=== PATIENT | male | born 1965 | race Caucasian/White ===

== ENCOUNTER 2018-01-19 08:10 | Day surgery (SDC) | payer OTHER ==
[2018-01-18 10:46] VITALS: BMI 26.3
[2018-01-19] MEDS ORDERED: PROPOFOL 20 ML ONE ×3 (08:51→09:05)
[2018-01-19] MEDS ORDERED: LIDOCAINE HCL/PF 2% SDV 5ML VIAL ONE (08:51)
[2018-01-19 09:35] VITALS: TEMP 98.2
[2018-01-19 09:48] VITALS: BP 108/62; PULSE 84
--- NOTE | 2018-01-21 14:07 | PATH ---
Surgical Pathology Report Patient Name: IVANA DUARTE [facility]. Rec. #: [id number] /Age/Gender: 1965 (Age: 52) / M Account: [id number] Location: [facility] Taken: 01/19/2018 Received: 01/19/2018 Reported: 01/21/2018 Physicians: Fredo Goodwin M.D. Specimen(s) Received A: BX DUODENUM B: BX ANTRUM Clinical History Weight loss Postoperative diagnosis: Duodenitis, gastritis, normal colon Final Diagnosis A. DUODENUM, BIOPSY: SMALL BOWEL MUCOSA WITH MILD ACUTE AND CHRONIC INFLAMMATION. B. STOMACH, ANTRUM, BIOPSY: GASTRIC ANTRAL MUCOSA WITH MODERATE CHRONIC ACTIVE GASTRITIS. IMMUNOHISTOCHEMICAL STAIN FOR H. PYLORI IS POSITIVE (MANY). Electronically Signed Aye Sylvester M.D. Gross Description A. Received in formalin, labeled "biopsy duodenum" are 2 fabian, irregular portions of soft tissue measuring 0.4 and 0.7 cm. in greatest dimension. The specimens are submitted in toto in one cassette. B. Received in formalin, labeled "biopsy antrum" are 2 fabian, irregular portions of soft tissue averaging 0.3 cm. in greatest dimension. The specimens are submitted in toto in one cassette. 01/20/2018 saudi01/20/2018
== END 2018-01-19 10:04 | disposition home or self-care (01) ==
LOC: FASU-ENDO 08:10
PROVIDERS: ATTEND Internal Medicine Gastroenterology
PROC: 0DB98ZX Excision of Duodenum, Via Natural or Artificial Opening Endoscopic, Diagnostic (ICD-10-PCS; 2018-01-19)
PROC: 0DB68ZX Excision of Stomach, Via Natural or Artificial Opening Endoscopic, Diagnostic (ICD-10-PCS; 2018-01-19)
PROC: 0DJD8ZZ Inspection of Lower Intestinal Tract, Via Natural or Artificial Opening Endoscopic (ICD-10-PCS; principal; 2018-01-19 08:30)
DX: Z12.11 Encounter for screening for malignant neoplasm of colon (principal); K29.80 Duodenitis without bleeding; K29.50 Unspecified chronic gastritis without bleeding; B96.81 Helicobacter pylori [H. pylori] as the cause of diseases classified elsewhere; R63.4 Abnormal weight loss; R63.0 Anorexia; Z68.26 Body mass index [BMI] 26.0-26.9, adult
CPT/HCPCS: 43239; G0121; 82962; 88305-TC; 88342-TC

== ENCOUNTER 2020-02-04 18:32 | Emergency (ER) | payer OTHER | END 2020-02-04 19:25 | disposition home or self-care (01) | LOC: JVIRT 18:32 | DX: Z03.818 Encounter for observation for suspected exposure to other biological agents ruled out (principal); J02.9 Acute pharyngitis, unspecified | CPT/HCPCS: C9803; Q3014-GT; U0003 ==

== ENCOUNTER 2023-06-04 13:57 | Emergency (ER) | payer OTHER ==
[2023-06-04 14:34] VITALS: BP 122/85; PULSE 83; RESP 20; TEMP 97.8; BMI 22.8
[2023-06-04] MEDS ORDERED: KETOROLAC TROMETHAMINE 30 MG/1 ML VIAL ONE (14:37)
[2023-06-04] MEDS: KETOROLAC TROMETHAMINE 30 MG/1 ML VIAL IM ONE (14:41)
== END 2023-06-04 15:40 | disposition home or self-care (01) ==
LOC: FER 13:57
PROC: 3E0233Z Introduction of Anti-inflammatory into Muscle, Percutaneous Approach (ICD-10-PCS; principal; 2023-06-04)
DX: S80.12XA Contusion of left lower leg, initial encounter (principal); X58.XXXA Exposure to other specified factors, initial encounter
CPT/HCPCS: 73590-TC-LT-FY; 93971-TC; 99284-25

== ENCOUNTER 2024-08-28 10:20 | Emergency (ER) | payer OTHER ==
[2024-08-28 10:38] VITALS: BP 134/88; PULSE 82; RESP 18; TEMP 98.2; BMI 25.4
[2024-08-28 11:26] LABS: ABSOLUTE IMMATURE GRANULOCYTES 0.01 x10^3/uL (0.0-0.031); BASOPHILS # 0.03 x10^3/uL (0.01-0.08); EOSINOPHIL % 5.7 % (0.8-7.0); HEMOGLOBIN 14.3 g/dL (13.7-17.5); MCHC 33.3 g/dl (32.3-36.5); MEAN CELL VOLUME 92.1 fl (79.0-92.2); MEAN PLT VOLUME 11.3 fl (9.4-12.4); MONOCYTE # 0.37 x10^3/uL (0.30-0.82); MONOCYTE % 5.3 % (5.3-12.2); PLATELET COUNT 212 x10^3/uL (163-337); RDW 12.5 % (12.2-16.1)
[2024-08-28 11:34] LABS: INR 0.92 (0.83-1.09); PROTHROMBIN TIME (PATIENT) 10.2 SEC (9.7-13.0)
[2024-08-28 11:37] LABS: ACTIVATED PTT 33.2 SECONDS (25.2-36.5)
[2024-08-28 11:52] LABS: ALBUMIN 4.9 g/dl (3.4-5.0); BILIRUBIN,TOTAL 0.7 mg/dl (0.2-1); CALCIUM 9.9 mg/dl (8.5-10.1); CREATININE 0.9 mg/dl (0.6-1.3); MAGNESIUM 2.2 mg/dL (1.8-2.4); PHOSPHOROUS 3.8 (2.5-4.9)
[2024-08-28 12:54] LABS: VENOUS BASE EXCESS -2.3 mmol/L (-2-2); VENOUS O2 SATURATION 47.5 % (70-80); VENOUS PCO2 46.6 mmHg (38-52); VENOUS PH 7.329 (7.310-7.410)
[2024-08-28 13:50] LABS: HIV INTERPRETATION NEGATIVE (NEGATIVE)
[2024-08-28 13:51] LABS: HCV DIAGNOSTIC IN-HOUSE W/RFLX NON-REACTIVE (NONREACTIVE)
== END 2024-08-28 14:10 | disposition home or self-care (01) ==
LOC: FER 10:20
DX: R53.81 Other malaise (principal); E11.9 Type 2 diabetes mellitus without complications; R42 Dizziness and giddiness; R35.0 Frequency of micturition; R53.1 Weakness
CPT/HCPCS: 36415; 80053; 82010; 82803; 83735; 84100; 84484; 85025; 85610; 85730; 86803; 87389; 93005; 99284-25